=== PATIENT | female | born 1950 | race Caucasian/White ===

== ENCOUNTER 2017-03-09 11:47 | Outpatient (CLI) | payer MEDICARE | END 2017-03-09 11:48 | disposition home or self-care (01) | LOC: BUREKG 11:47 | PROVIDERS: ATTEND Family Medicine | DX: Z00.00 Encounter for general adult medical examination without abnormal findings (principal) | CPT/HCPCS: 93005; 93010 ==

== ENCOUNTER 2017-03-09 12:23 | Outpatient (CLI) | payer MEDICARE, OTHER ==
[2017-03-09 13:42] LABS: #Basophils 0.1 thou/uL (0.0-0.2); #Eosinphils 0.2 thou/uL (0.0-0.7); #Monocytes 0.6 thou/uL (0.11-0.59); #Neutrophils 4.9 thou/uL (1.40-6.50); %Basophils 0.9 % (0.0-1.0); %Eosinophils 2.8 % (0.0-10.0); %Lymphocytes 33.8 % (21.0-51.0); %Monocytes 6.6 % (0.0-10.0); %Neutrophils 55.9 % (42.0-75.0); Hemoglobin 14.3 g/dL (12.0-16.0); Mean Corpuscular HGB CONC 33.7 g/dL (32.0-36.0); Mean Corpuscular Hemoglobin 30.9 pg (27.0-31.0); Mean Corpuscular Volume 91.5 fl (81.0-99.0); Mean Platelet Volume 9.5 fL (7.4-10.4); Platelet Count 182 thou/uL (130-400); RBC Distribution Width 12.1 % (11.5-14.5); Red Blood Cell (RBC) Count 4.63 mill/uL (4.20-5.40); White Blood Cell (WBC) Count 8.8 thou/uL (4.8-10.8)
[2017-03-09 13:57] LABS: ALT (SGPT) 25 U/L (8-55); AST (SGOT) 18 U/L (5-34); Albumin 4.3 g/dL (3.4-4.8); Alkaline Phosphatase 85 U/L (40-150); Anion Gap 15 mmol/L (10-20); BUN (Urea Nitrogen) 13 mg/dL (9.8-20.1); Bilirubin, Total 1.2 mg/dL (0.2-1.2); Calc. Creatinine Clearance 0 mL/min (70-130); Calcium 9.6 mg/dL (7.8-10.44); Carbon Dioxide 28 mmol/L (23-31); Cardiac Risk 4.4 (Less than 4.5); Chloride 103 mmol/L (98-107); Cholesterol 168 mg/dl (< 200 Desired); Estimated GFR-MDRD 74; Globulin 2.7 g/dL (2.4-3.5); Glucose 82 mg/dL (80-115); HDL Cholesterol 38 mg/dL (>60 Neg Risk); LDL Cholesterol, Calculated 101 mg/dL; Potassium 4.4 mmol/L (3.5-5.1); Sodium 142 mmol/L (136-145); Triglycerides 147 mg/dL (Less than 150)
== END 2017-03-09 12:24 | disposition home or self-care (01) ==
LOC: MERGE 12:23 → HPCALD 12:23
PROVIDERS: ATTEND Family Medicine
DX: Z00.00 Encounter for general adult medical examination without abnormal findings (principal); I10 Essential (primary) hypertension; E03.9 Hypothyroidism, unspecified
CPT/HCPCS: 36415; 80053; 80061; 84443; 85025; 88142; 93005; 93010; G0123

== ENCOUNTER 2017-07-12 15:07 | Outpatient (CLI) | payer MEDICARE ==
--- NOTE | 2017-07-12 19:47 | RAD ---
RIGHT HIP TWO VIEWS: Date: 07-12-17 FINDINGS: Moderate degenerative changes are present consisting of prominent osteophytes and slight joint space narrowing. The articular surface of the femoral head is smooth. No acute traumatic changes were noted in the hip or adjacent pubic ring. The right SI joint appears normal. The pubic symphysis shows no w idening or offset. IMPRESSION: Moderate arthritic changes. POS: HOME
--- NOTE | 2017-07-12 19:49 | RAD ---
LUMBAR SPINE THREE VIEWS: Date: 07-12-17 FINDINGS: Minimal anterolisthesis of L3 on L4 and L4 on L5 is present. This appears to be on the basis of facet arthritis which is particularly severe at L3 and below, down to S1. There is very minimal disc space narrowing at L4-5. No fracture was seen. The SI joints are symmetrical. IMPRESSION: Significant facet arthritis at L3 and below. Slight disc space narrowing at L4-5. POS: HOME
== END 2017-07-12 15:08 | disposition home or self-care (01) ==
LOC: BURRAD 15:07
PROVIDERS: ATTEND Family Medicine
DX: M54.41 Lumbago with sciatica, right side (principal); M25.551 Pain in right hip; M46.86 Other specified inflammatory spondylopathies, lumbar region; M48.061 Spinal stenosis, lumbar region without neurogenic claudication; M16.11 Unilateral primary osteoarthritis, right hip
CPT/HCPCS: 72100

== ENCOUNTER 2020-01-03 11:28 | Outpatient (CLI) | payer MEDICARE ==
--- NOTE | 2020-01-03 19:48 | RAD ---
RIGHT HIP TWO VIEWS: 01/03/20 Comparison is made with the prior study of 05/30/19. The hip arthroplasty is again noted. There is no sign of loosening or infection around the hardware. No fracture was seen. The adjacent pubic ring appears intact. IMPRESSION: No acute finding. POS: HOME
== END 2020-01-03 11:29 | disposition home or self-care (01) ==
LOC: BURLAB 11:28
PROVIDERS: ATTEND Registered Nurse Community Health
DX: M25.451 Effusion, right hip (principal)

== ENCOUNTER 2020-03-25 11:44 | Outpatient (CLI) | payer MEDICARE ==
--- NOTE | 2020-03-25 19:32 | RAD ---
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 Marked disc space narrowing with osteop hytes is present at the C4-5 level. No fracture or dislocation was seen. There is ossification of the ligamentum nuchae posteriorly. The oblique views show left foraminal narrowing at C4-5 due to osteop hytes and possibly C6-7 on the left. The right side is somewhat less affected, but there is particula r facet arthritis at C4-5 on the right. IMPRESSION: 1. 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 2. Severe degenerative disc disease and some facet arthritis at C4-5. The left side seems to be more affected than right. MRI would be most useful at determining any neural impingement. POS: HOME
== END 2020-03-25 11:45 | disposition home or self-care (01) ==
LOC: BURRAD 11:44
PROVIDERS: ATTEND Family Medicine
DX: R20.9 Unspecified disturbances of skin sensation (principal); M50.321 Other cervical disc degeneration at C4-C5 level; M47.812 Spondylosis without myelopathy or radiculopathy, cervical region
CPT/HCPCS: 72050

== ENCOUNTER 2020-06-11 11:36 | Emergency (ER) | payer MEDICARE ==
[2020-06-11 12:39] LABS: Hemoglobin 12.5 g/dL (12.0-16.0); Mean Corpuscular HGB CONC 31.7 g/dL (32.0-36.0); Mean Corpuscular Hemoglobin 28.9 pg (27.0-31.0); Mean Corpuscular Volume 91.1 fL (78.0-98.0); Mean Platelet Volume 8.4 fL (7.4-10.4); Platelet Count 260 thou/uL (130-400); Red Blood Cell (RBC) Count 4.34 mill/uL (4.20-5.40); White Blood Cell (WBC) Count 9.8 thou/uL (4.8-10.8)
[2020-06-11] MEDS ORDERED: Iopamidol 370 76% 100 ML VIAL ONE (12:51)
[2020-06-11 12:54] LABS: ALT (SGPT) 33 U/L (8-55); AST (SGOT) 17 U/L (5-34); Albumin 3.3 g/dL (3.4-4.8); Alkaline Phosphatase 136 U/L (40-110); Anion Gap 18 mmol/L (10-20); BUN (Urea Nitrogen) 7 mg/dL (9.8-20.1); Bilirubin, Total 0.7 mg/dL (0.2-1.2); Calc. Creatinine Clearance 0 mL/min (70-130); Calcium 9.4 mg/dL (7.8-10.44); Carbon Dioxide 25 mmol/L (23-31); Chloride 101 mmol/L (98-107); Globulin 3.8 g/dL (2.4-3.5); Glucose 139 mg/dL (80-115); Potassium 3.7 mmol/L (3.5-5.1); Protein, Total 7.1 g/dL (6.0-8.3); Sodium 140 mmol/L (136-145)
--- NOTE | 2020-06-11 13:07 | RAD ---
FRONTAL RADIOGRAPH CHEST PORTABLE UPRIGHT: Date: 06/11/2020 COMPARISON: None available. HISTORY: Fever. FINDINGS: There is no pneumothorax seen. There is increased linear and interstitial density in the perihilar re gions and both lung bases. No significant pleural effusion. Heart and mediastinal contours appear keith ssly unremarkable. There is atherosclerotic calcification of the aortic arch. IMPRESSION: Diffuse nonspecific interstitial prominence with a perihilar and bibasilar predominance, etiology and acuity uncertain given lack of comparison imaging. Findings may be related to interstitial infectiou s pneumonitis or interstitial edema. Clinical correlation and follow-up imaging is recommended. POS: [facility]
[2020-06-11 13:21] LABS: Band 22 % (5-11); Eosinophils 2 % (0-10); Lymphocytes 24 % (21-51); MDiff Complete? YES; Monocytes 5 % (0-10); Neutrophil 41 % (42-75); Platelet Morphology Comment Appears Adequate; Reactive Lymphocytes 6 % (0-10)
[2020-06-11] MEDS ORDERED: Enoxaparin Sodium 100 MG/ML SYRINGE ONE (13:37)
[2020-06-11] MEDS ORDERED: Azithromycin 500 MG VIAL ONE (13:39)
[2020-06-11] MEDS ORDERED: cefTRIAXone\\ROCEPHIN 1 GM VIAL ONE (13:39)
[2020-06-11] MEDS ORDERED: Dexamethasone 4 mg/ml Vial ONE (13:39)
[2020-06-11 13:54] LABS: Bilirubin Negative (Negative); Blood, Urine Trace (Negative); Clarity Clear (Clear); Glucose, Urine (Dipstick) Negative (Negative); Ketone, Urine Negative (Negative); Leukocyte Negative (Negative); Nitrite Negative (Negative); Protein, Urine (Dipstick) 30 mg/dL (Neg-Trace); pH, Urine 8.5 (5.0-9.0)
[2020-06-11 13:56] LABS: RBC/HPF 0-3 HPF (0-3)
[2020-06-11 13:57] LABS: Bacteria/HPF None Seen HPF (None Seen); Squamous Epithelial 0-3 HPF (0-3); WBC/HPF None Seen HPF (0-3)
[2020-06-11] MEDS ORDERED: Acetaminophen 500 MG TAB ONE (14:28)
--- NOTE | 2020-06-11 14:56 | CT ---
CTA Angio Chest W WO Con History: Dyspnea Comparison: Radiograph same day Findings: CT angiogram chest performed after the intravenous administration of contrast. 3-D renderin g provided. No proximal segmental pulmonary arterial filling defect. Mild fullness of the hilar interstitium bila terally suggesting pulmonary venous congestion. Low-grade groundglass opacity within the lingula. Scattered centrilobular groundglass nodules throughout the upper lobes. No pneumothorax. No lobar consolidation. Mildly prominent bilateral hilar lymph nodes bilaterally. Right hilar lymph node measures up to 12 mm in short axis. No pneumothorax. No significant effusion. Thoracic spine is intact without fracture. No acute displaced rib fracture. Impression: 1. No pulmonary embolism. 2. Moderate emphysema with upper lobe predominant groundglass nodules and opacities suggesting respir atory bronchiolitis. 3. Well-defined groundglass opacity within the lingula measuring up to 4.1 cm in size. Scattered refl ect early infection less likely pulmonary edema. Underlying malignancy is felt less likely. Follow-up chest CT in 3-6 months is recommended. 4. Possibly reactive bilateral hilar lymph nodes. This can be evaluated also on the follow-up 3-[address] 5. Hepatomegaly.
== END 2020-06-11 15:04 | disposition short-term general hospital (02) ==
LOC: BURERS 11:36
DX: U07.1 COVID-19 (principal); I49.9 Cardiac arrhythmia, unspecified; I10 Essential (primary) hypertension; E03.9 Hypothyroidism, unspecified; Z87.891 Personal history of nicotine dependence; Z79.899 Other long term (current) drug therapy; Z79.82 Long term (current) use of aspirin
CPT/HCPCS: 36415; 71045; 71275; 80053; 81003; 81015; 83605; 84484; 85025; 85379; 86140; 87040; 87804; 93005; 96365; 96372; 96375; J0456; J0696; J1100; J1650; Q9967

== ENCOUNTER 2020-07-04 10:01 | Outpatient (CLI) | payer MEDICARE ==
--- NOTE | 2020-07-04 14:13 | RAD ---
CERVICAL SPINE 07/04/20 AP and lateral views are compared with the 04/24/20 study. There has been an anterior cervical fusion in the meantime. It spans C3, C4, and C5. Synthetic discs are present between C3 and C4 and C4 and C5 . The postoperative appearance is normal. The soft tissues are normal in thickness. Spinal alignment is normal. IMPRESSION: Normal postoperative appearance. POS: HOME
== END 2020-07-04 10:02 | disposition home or self-care (01) ==
LOC: BURRAD 10:01
PROVIDERS: ATTEND Neurological Surgery
DX: M50.00 Cervical disc disorder with myelopathy, unspecified cervical region (principal)
CPT/HCPCS: 72040

== ENCOUNTER 2021-12-10 06:06 | Emergency (ER) | payer MEDICARE ==
[2021-12-10] MEDS ORDERED: Iopamidol 370 76% 100 ML VIAL FS ONE (06:07)
[2021-12-10 06:52] LABS: #Basophils 0.1 thou/uL (0.0-0.2); #Eosinphils 0.3 thou/uL (0.0-0.7); #Lymphocytes 2.9 thou/uL (1.20-3.40); #Monocytes 0.7 thou/uL (0.11-0.59); #Neutrophils 5.5 thou/uL (1.40-6.50); %Basophils 1.1 % (0.0-1.0); %Eosinophils 3.2 % (0.0-10.0); %Lymphocytes 30.2 % (21.0-51.0); %Monocytes 7.5 % (0.0-10.0); %Neutrophils 57.9 % (42.0-75.0); Hemoglobin 13.7 g/dL (12.0-16.0); Mean Corpuscular HGB CONC 34.4 g/dL (32.0-36.0); Mean Corpuscular Hemoglobin 30.1 pg (27.0-31.0); Mean Corpuscular Volume 87.5 fL (78.0-98.0); Mean Platelet Volume 10.6 fL (7.4-10.4); Platelet Count 188 thou/uL (130-400); RBC Distribution Width 12.6 % (11.5-14.5); Red Blood Cell (RBC) Count 4.56 mill/uL (4.20-5.40); White Blood Cell (WBC) Count 9.5 thou/uL (4.8-10.8)
[2021-12-10 06:58] LABS: Prothrombin Time 13.2 sec (12.0-14.7)
[2021-12-10 06:59] LABS: PTT 30.1 sec (22.9-36.1)
[2021-12-10 07:02] LABS: ALT (SGPT) 34 U/L (8-55); AST (SGOT) 21 U/L (5-34); Albumin 3.8 g/dL (3.4-4.8); Alkaline Phosphatase 117 U/L (40-110); Anion Gap 15 mmol/L (10-20); BUN (Urea Nitrogen) 14 mg/dL (9.8-20.1); Bilirubin, Total 0.7 mg/dL (0.2-1.2); Calc. Creatinine Clearance 0 mL/min (70-130); Calcium 9.2 mg/dL (7.8-10.44); Carbon Dioxide 26 mmol/L (23-31); Chloride 106 mmol/L (98-107); Globulin 3.2 g/dL (2.4-3.5); Glucose 108 mg/dL (80-115); Potassium 4.4 mmol/L (3.5-5.1); Sodium 143 mmol/L (136-145)
[2021-12-10] MEDS ORDERED: Aspirin Chewable 81 MG TAB ONE (07:06)
== END 2021-12-10 08:38 | disposition short-term general hospital (02) ==
LOC: BURERS 06:06
DX: I63.9 Cerebral infarction, unspecified (principal); I45.4 Nonspecific intraventricular block; R00.1 Bradycardia, unspecified; R29.703 NIHSS score 3; I10 Essential (primary) hypertension; E03.9 Hypothyroidism, unspecified; Z87.891 Personal history of nicotine dependence; Z79.82 Long term (current) use of aspirin; Z79.899 Other long term (current) drug therapy
CPT/HCPCS: 36416; 70450; 70496; 70498; 80053; 84484; 85025; 85610; 85730; 93005; 36415-59; Q9967